=== PATIENT | female | born 1980 | race Caucasian/White ===

== ENCOUNTER 2018-07-22 14:29 | Emergency (ER) | payer MEDICAID ==
[~2018-07-22] VITALS: Ht 162.6 cm; Wt 59.0 kg
[2018-07-22 14:42] VITALS: Ht 162.6 cm; Wt 59.0 kg
[2018-07-22 20:59] VITALS: BP 115/57
== END 2018-07-22 20:59 | disposition home or self-care (01) ==
LOC: ED 14:29
DX: S13.4XXA Sprain of ligaments of cervical spine, initial encounter (principal); S39.012A Strain of muscle, fascia and tendon of lower back, initial encounter; V89.2XXA Person injured in unspecified motor-vehicle accident, traffic, initial encounter; Y93.89 Activity, other specified; Y92.410 Unspecified street and highway as the place of occurrence of the external cause; Y99.8 Other external cause status